=== PATIENT | male | born 1970 | race Caucasian/White ===

== ENCOUNTER 2017-11-24 08:28 | Day surgery (SDC) | payer BC ==
[~2017-11-24] VITALS: Ht 195.6 cm; Wt 118.4 kg
[~2017-11-24 08:28] MED LIST: AFRIN,GENASAL D15 ML BOTH NARES; ASPIR 8181 M1 PO; CENTRUM MEN'S1 EACH PO; DIGOX250 MCG PO; DILTIAZEM 24HR360 M1 PO; FLEXERIL10 MG PO; LO-DOSE ASPIRIN81 M1 PO; LYRICA100 MG PO; LYRICA150 MG PO; LYRICA50 MG PO; LYRICA75 MG PO; MOBIC15 MG PO; MOTRIN800 MG PO; OPANA ER7.5 MG PO; OXYCODONE HCL10 MG PO; OXYCODONE-APAP1 EAC6 PO; OXYCONTIN15 MG PO; TRICOR145 MG PO; WARFARIN SODIU7.5 MG PO; WARFARIN SODIUM1 MG PO; ZESTRIL10 MG PO; [UNRECOGNIZED DRUG - OTHER] PO
== END 2017-11-24 10:20 | disposition home or self-care (01) ==
LOC: PAIN 08:28 → SDC 09:00 → PAIN 09:00
PROC: 3E0R33Z Introduction of Anti-inflammatory into Spinal Canal, Percutaneous Approach (ICD-10-PCS; principal; 2017-11-24)
PROC: 3E0R3BZ Introduction of Anesthetic Agent into Spinal Canal, Percutaneous Approach (ICD-10-PCS; principal; 2017-11-24)
DX: M51.16 Intervertebral disc disorders with radiculopathy, lumbar region (principal); M47.816 Spondylosis without myelopathy or radiculopathy, lumbar region; M48.061 Spinal stenosis, lumbar region without neurogenic claudication; I10 Essential (primary) hypertension; K21.9 Gastro-esophageal reflux disease without esophagitis; Z87.891 Personal history of nicotine dependence; Z79.891 Long term (current) use of opiate analgesic
CPT/HCPCS: J1100; J2250

== ENCOUNTER 2018-02-10 07:00 | Day surgery (SDC) | payer BC ==
[~2018-02-10] VITALS: Ht 195.6 cm; Wt 117.9 kg
[~2018-02-10 07:00] MED LIST changes: +PROBIOTIC1 EAC1 PO
== END 2018-02-10 08:30 | disposition home or self-care (01) ==
LOC: PAIN 07:00 → SDC 07:30 → PAIN 08:30
DX: M47.816 Spondylosis without myelopathy or radiculopathy, lumbar region (principal); M51.26 Other intervertebral disc displacement, lumbar region; M54.16 Radiculopathy, lumbar region; M99.83 Other biomechanical lesions of lumbar region; Z87.891 Personal history of nicotine dependence; K21.9 Gastro-esophageal reflux disease without esophagitis; I48.91 Unspecified atrial fibrillation; Z98.890 Other specified postprocedural states; Z87.19 Personal history of other diseases of the digestive system
CPT/HCPCS: J1100; J2250; J3010